=== PATIENT | female | born 1970 | race Caucasian/White ===

== ENCOUNTER 2019-01-28 03:09 | Emergency (ER) | payer SELFPAY ==
[~2019-01-28] VITALS: Ht 162.6 cm; Wt 67.7 kg
[2019-01-28 03:19] VITALS: BP 133/85; TEMP 99.1
[2019-01-28 03:59] LABS: COLLECTION METHOD CLEAN CATCH
[2019-01-28 04:04] LABS: PH 6 (5-8); SQUAMOUS EPITHELIAL None Seen /hpf; URINE APPEARANCE Clear; URINE BACTERIA None Seen /hpf; URINE BILIRUBIN Negative (NEGATIVE); URINE BLOOD Negative (NEGATIVE); URINE COLOR Straw; URINE GLUCOSE Negative (NEGATIVE); URINE KETONE Negative (NEGATIVE); URINE LEUKOCYTE ESTERASE Negative (NEGATIVE); URINE NITRATE Negative (NEGATIVE); URINE PROTEIN(semi-quant) Negative (NEGATIVE); URINE RBC None Seen /hpf; URINE UROBILINOGEN Negative (NEGATIVE)
[2019-01-28 04:18] LABS: BASO % 0.2 % (0.0-2.0); EOS # 0.2 (0.0-0.7); EOS % 1.5 % (0-4.0); GRAN # 7.2 (1.4-6.5); GRAN % 65.2 % (42.2-75.2); HEMATOCRIT 43.6 % (37.0-47.0); HEMOGLOBIN 13.9 g/dl (12.5-16.0); LYMPH # 2.7 (1.2-3.4); LYMPH % 24.2 % (20.0-51.0); MEAN CELL VOLUME 96 fl (80.0-100.0); MEAN CORPUSCULAR HEMOGLOBIN 31 pg (27.0-31.0); MEAN CORPUSCULAR HGB CONC 32 g/dl (33.0-37.0); MEAN PLATELET VOLUME 8.6 fl (7.4-10.4); MONO # 0.9 (0.1-0.6); MONO % 8.4 % (1.7-9.3); PLATELET COUNT 369 K/mm3 (130-400); RED BLOOD COUNT 4.53 M/mm3 (4.10-5.30); REDCELL DISTRIBUTION WIDTH-CV 13.5 % (11.5-14.5)
[2019-01-28 04:31] LABS: ALBUMIN 3.8 gm/dL (3.5-5.0); BILIRUBIN,TOTAL 0.6 mg/dL (0.0-1.0); C-REACTIVE PROTEIN 1.3 mg/dL (0.0-0.9); CALCIUM 8.8 mg/dL (8.4-10.2); CREATININE, serum 0.82 (0.52-1.25); POTASSIUM 3.8 mmol/L (3.4-5.0)
[2019-01-28] MEDS ORDERED: PERCOCET 325 MG1 TA2 PO (06:09)
[2019-01-28] MEDS ORDERED: ZOFRAN ODT8 MG PO (06:10)
[2019-01-28 06:47] VITALS: PULSE 87
[2019-01-29] MEDS ORDERED: MOTRIN 200200 MG/TAB PO (11:22)
== END 2019-01-28 07:00 | disposition home or self-care (01) ==
LOC: COL.ER 03:09
PROVIDERS: Emergency Medicine
DX: R10.30 Lower abdominal pain, unspecified (principal); F17.210 Nicotine dependence, cigarettes, uncomplicated; F12.90 Cannabis use, unspecified, uncomplicated
CPT/HCPCS: J1885; J2060; J2270; J2405; J7030; Q9967

== ENCOUNTER 2019-01-29 09:09 | Emergency (ER) | payer SELFPAY ==
[~2019-01-29] VITALS: Ht 162.6 cm; Wt 67.7 kg
[~2019-01-29 09:09] MED LIST: PERCOCET 325 MG1 TA2 PO; ZOFRAN ODT8 MG PO
[2019-01-29 09:26] VITALS: TEMP 97.3
[2019-01-29 10:21] LABS: COLLECTION METHOD CLEAN CATCH
[2019-01-29 10:30] LABS: PH 7 (5-8); SQUAMOUS EPITHELIAL 0-2 /hpf; URINE APPEARANCE Clear; URINE BACTERIA None Seen /hpf; URINE BILIRUBIN Negative (NEGATIVE); URINE BLOOD Negative (NEGATIVE); URINE COLOR Yellow; URINE GLUCOSE Negative (NEGATIVE); URINE KETONE Negative (NEGATIVE); URINE LEUKOCYTE ESTERASE Negative (NEGATIVE); URINE NITRATE Negative (NEGATIVE); URINE PROTEIN(semi-quant) Negative (NEGATIVE); URINE RBC 0-2 /hpf; URINE UROBILINOGEN Negative (NEGATIVE)
--- NOTE | 2019-01-29 10:31 | NUR ---
director of women's services received an ED consult for the patient. The patient is needing a medication voucher. KIANA conrad met with the patient; patient is self-pay and is unemployed at this time due to not having an identification card. Patient reports she will be acquiring an ID once she get to [place]. The patient reports she has been in [place] for 6-7 nights. Before coming to [place] patient lived in [place] for approximately 1 year at [address] and prior to lived in [place], [place] for 15 years. The patient reports she has been staying at local motels and in a van. Patient reports she will be going to [place] to stay at the nursing home because the [facility] advised her that they only take [facility] residence; patient states she has transportation to get [place]. The patient reports she had Medicare and Medicaid in [place] but when she moved she was not getting her mail and care lasped. The patient also states she has applied for disablity but because of mail issues has not been approved; patient is in the process of appealing. KIANA conrad provided a list of local providers, information for the [facility], [facility], a [facility] Resource guide, a card for Oanh Delgado, Financial Counselor and a medication voucher to be provided.
[2019-01-29 10:38] LABS: BASO % 0.3 % (0.0-2.0); EOS # 0.2 (0.0-0.7); EOS % 2.1 % (0-4.0); GRAN # 6.5 (1.4-6.5); GRAN % 67.5 % (42.2-75.2); HEMATOCRIT 39.5 % (37.0-47.0); HEMOGLOBIN 12.6 g/dl (12.5-16.0); LYMPH # 2.3 (1.2-3.4); LYMPH % 23.5 % (20.0-51.0); MEAN CELL VOLUME 97 fl (80.0-100.0); MEAN CORPUSCULAR HEMOGLOBIN 31 pg (27.0-31.0); MEAN CORPUSCULAR HGB CONC 32 g/dl (33.0-37.0); MEAN PLATELET VOLUME 8.8 fl (7.4-10.4); MONO # 0.6 (0.1-0.6); MONO % 6.2 % (1.7-9.3); PLATELET COUNT 340 K/mm3 (130-400); RED BLOOD COUNT 4.06 M/mm3 (4.10-5.30); REDCELL DISTRIBUTION WIDTH-CV 13.3 % (11.5-14.5)
[2019-01-29 10:56] LABS: ALBUMIN 3.4 gm/dL (3.5-5.0); BILIRUBIN,TOTAL 0.2 mg/dL (0.0-1.0); C-REACTIVE PROTEIN 1.5 mg/dL (0.0-0.9); CALCIUM 8.5 mg/dL (8.4-10.2); CREATININE, serum 0.8 (0.52-1.25); POTASSIUM 4.2 mmol/L (3.4-5.0); TOTAL PROTEIN 6.4 gm/dL (6.4-8.2)
[2019-01-29] MEDS ORDERED: MOTRIN 200200 MG/TAB PO (11:22)
[2019-01-29 11:46] VITALS: BP 146/95; PULSE 89
== END 2019-01-29 11:45 | disposition home or self-care (01) ==
LOC: COL.ER 09:09
PROVIDERS: Emergency Medicine
DX: K55.069 Acute infarction of intestine, part and extent unspecified (principal); F17.210 Nicotine dependence, cigarettes, uncomplicated; F12.90 Cannabis use, unspecified, uncomplicated; Z90.49 Acquired absence of other specified parts of digestive tract

== ENCOUNTER 2019-01-31 22:00 | Emergency (ER) | payer SELFPAY ==
[~2019-01-31] VITALS: Ht 165.1 cm; Wt 67.7 kg
[2019-01-31 22:00] VITALS: TEMP 98.1
[~2019-01-31 22:00] MED LIST changes: +MOTRIN 200200 MG/TAB PO
[2019-01-31 22:51] LABS: COLLECTION METHOD CLEAN CATCH
[2019-01-31 22:58] LABS: PH 6 (5-8); SQUAMOUS EPITHELIAL 0-2 /hpf; URINE APPEARANCE Clear; URINE BACTERIA None Seen /hpf; URINE BILIRUBIN Negative (NEGATIVE); URINE BLOOD 1+ (NEGATIVE); URINE COLOR Straw; URINE GLUCOSE Negative (NEGATIVE); URINE KETONE Negative (NEGATIVE); URINE LEUKOCYTE ESTERASE Negative (NEGATIVE); URINE NITRATE Negative (NEGATIVE); URINE PROTEIN(semi-quant) Negative (NEGATIVE); URINE RBC 0-2 /hpf; URINE UROBILINOGEN Negative (NEGATIVE)
[2019-02-01 01:00] LABS: BASO % 0.4 % (0.0-2.0); EOS # 0.3 (0.0-0.7); EOS % 3.6 % (0-4.0); GRAN # 4.9 (1.4-6.5); GRAN % 57.2 % (42.2-75.2); HEMATOCRIT 43.1 % (37.0-47.0); HEMOGLOBIN 13.6 g/dl (12.5-16.0); LYMPH # 2.6 (1.2-3.4); LYMPH % 30.6 % (20.0-51.0); MEAN CELL VOLUME 96 fl (80.0-100.0); MEAN CORPUSCULAR HEMOGLOBIN 30 pg (27.0-31.0); MEAN CORPUSCULAR HGB CONC 32 g/dl (33.0-37.0); MONO # 0.7 (0.1-0.6); MONO % 7.8 % (1.7-9.3); PLATELET COUNT 330 K/mm3 (130-400); RED BLOOD COUNT 4.51 M/mm3 (4.10-5.30); REDCELL DISTRIBUTION WIDTH-CV 13.2 % (11.5-14.5)
[2019-02-01 01:14] LABS: ALANINE AMINOTRANSFERASE 16 U/L (9-52); ALBUMIN 3.7 gm/dL (3.5-5.0); ALKALINE PHOSPHATASE 65 U/L (50-136); ANION GAP 7 mmol/L (7-16); AST,SGOT 27 U/L (15-37); BILIRUBIN,TOTAL 0.3 mg/dL (0.0-1.0); BLOOD UREA NITROGEN 12 mg/dL (7-17); C-REACTIVE PROTEIN < 0.5 mg/dL (0.0-0.9); CALCIUM 8.3 mg/dL (8.4-10.2); CARBON DIOXIDE 25 mmol/L (22-30); CHLORIDE 107 mmol/L (98-107); CREATININE, serum 0.62 (0.52-1.25); GLUCOSE 77 mg/dL (74-106); LIPASE 190 U/L (23-300); POTASSIUM 3.7 mmol/L (3.4-5.0); SODIUM 139 mmol/L (137-145); TOTAL PROTEIN 6.9 gm/dL (6.4-8.2)
[2019-02-01 04:14] VITALS: BP 130/80; PULSE 73
--- NOTE | 2019-02-01 09:22 | NUR ---
Consult for KARSON. SW met with patient in the EMR. Patient laying on bench with clothing and other valuables spread against interior wall. SW address patient about placement. Patient reports that she was at the [facility] but when she check out she was unable to return. Patient reports that she feel she is not getting the support she needs and is not being treated. Patient reports ongoing pain but also states she is going to another hospital for pain medications. Patient was offered another placement in [facility] . Patient was educated about the inappropriate stay in the waiting room for sleeping overnight. Patient denies that she has been sleeping in the waiting room. Patient reports that she is not opposed to going to a fdc. Patient reports that she has a job placement temporary at the [facility] and at [employer] [facility] in . Patient has been offered a ride at 11:00 am to the [facility]. SW set expectations of using her resources. [facility] has the patient on a 30 Day ban until Feb 23, 2019. Patient recieved a clothing voucher and support in obtaining additional placement which was reported to be refused by the patient. Patient denies this also. Nothing Further.
== END 2019-02-01 06:04 | disposition home or self-care (01) ==
LOC: COL.ER 22:00
PROVIDERS: Emergency Medicine
DX: R10.84 Generalized abdominal pain (principal); F12.90 Cannabis use, unspecified, uncomplicated; F17.210 Nicotine dependence, cigarettes, uncomplicated; Z90.49 Acquired absence of other specified parts of digestive tract
CPT/HCPCS: C9113; J1630; J2550; J7030